=== PATIENT | male | born 1945 | race Caucasian/White ===

== ENCOUNTER → 2016-07-14 | Outpatient (CLI) | payer OTHER, BC ==
[~2016-07-14] MED LIST: ASPI-435 PO; CALC-5 PO; CHOL1TAB53 PO; LISI20TA3 PO; PIOG1TAB20 PO; PRS5 PO; VITATAB PO
[2016-07-14 12:42] LABS: BASO % 0.5 %; BASO ABS # 0.03 K/uL (0-0.2); COMPLETE YES; HEMATOCRIT 39.4 % (42-52); IG% 0.2 %; LYMPH % 18.9 %; LYMPH ABS # 1.19 K/uL (1.2-3.4); MEAN CELL VOLUME 87.6 fL (80-100); MEAN CORPUSCULAR HGB CONC 34.3 g/dl (32-36); MEAN PLATELET VOLUME 11.2 fL (7.4-10.4); MONO % 8.4 %; PLATELET COUNT 132 K/uL (130-400); WHITE BLOOD COUNT 6.29 K/uL (4.8-10.8)
[2016-07-14 13:02] LABS: ALT/SGPT 13 U/L (12-78); AST/SGOT 15 U/L (15-37); BLOOD UREA NITROGEN 23 mg/dl (7-18); CALCIUM 8.7 mg/dl (8.5-10.1); CARBON DIOXIDE 23 mmol/L (21-32); CHLORIDE 108 mmol/L (98-107); CHOLESTEROL 212 mg/dl (0-200); GLUCOSE 175 mg/dl (70-99); POTASSIUM 3.9 mmol/L (3.5-5.1); SODIUM 141 mmol/L (136-145); TRIGLYCERIDES 219 mg/dl (0-150); VERY LOW DENSITY LIPOPROT CALC 44 mg/dl
[2016-07-14 13:05] LABS: ALB/GLOB RATIO 1.1 (0.9-2); ALKALINE PHOSPHATASE 97 U/L (45-117); HDL CHOLESTEROL 42 mg/dl; LDL CHOLESTEROL CALCULATED 126 mg/dl
[2016-07-14 13:23] LABS: ESTIMATED AVERAGE GLUCOSE 171 mg/dl; HA1C FLAG Normal (Normal)
== END | disposition home or self-care (01) ==
LOC: C.LABBFT 08:14
PROVIDERS: ATTEND Internal Medicine
DX: Z00.00 Encounter for general adult medical examination without abnormal findings (principal); E11.9 Type 2 diabetes mellitus without complications; E78.5 Hyperlipidemia, unspecified; I10 Essential (primary) hypertension; E78.00 Pure hypercholesterolemia, unspecified; E55.9 Vitamin D deficiency, unspecified

== ENCOUNTER → 2017-06-03 | Outpatient (CLI) | payer OTHER, BC ==
[~2017-06-03] MED LIST changes: +CIPR-255 PO; +EPP3/2 IM; +LACTCAP3; +PHEN95TA14 PO; +PIOG1TAB25 PO; +SAXA1TAB5 PO; +SAXAGLIPTIN PO; +TAMS0.4C38 PO
[2017-06-03 12:22] LABS: BASO % 0.5 %; BASO ABS # 0.03 K/uL (0-0.2); EOS % 3.1 %; HEMATOCRIT 40.1 % (42-52); HEMOGLOBIN 13.3 g/dL (14.0-18.0); IG# 0.02 K/uL (0.00-0.02); LYMPH % 18.4 %; LYMPH ABS # 1.18 K/uL (1.2-3.4); MEAN CELL VOLUME 86.6 fL (80-100); MEAN CORPUSCULAR HEMOGLOBIN 28.7 pg (25-34); MEAN CORPUSCULAR HGB CONC 33.2 g/dl (32-36); MEAN PLATELET VOLUME 10.5 fL (7.4-10.4); MONO % 8.2 %; MONO ABS # 0.53 K/uL (0.11-0.59); NEUT % 69.5 %; NEUT ABS # 4.47 K/uL (1.4-6.5); PLATELET COUNT 142 K/uL (130-400); RED CELL DISTRIBUTION WIDTH CV 12.5 % (11.5-14.5); RED CELL DISTRIBUTION WIDTH SD 39.7 fL (36.4-46.3); WHITE BLOOD COUNT 6.43 K/uL (4.8-10.8)
[2017-06-03 12:33] LABS: HEMOGLOBIN A1C 7.9 % (4.5-5.6)
== END | disposition home or self-care (01) ==
LOC: C.LABBFT 08:00
PROVIDERS: ATTEND Internal Medicine
DX: Z11.59 Encounter for screening for other viral diseases (principal); E11.9 Type 2 diabetes mellitus without complications; D64.9 Anemia, unspecified; E55.9 Vitamin D deficiency, unspecified

== ENCOUNTER 2017-08-22 08:32 | Emergency (ER) | payer OTHER, BC ==
[~2017-08-22] VITALS: Ht 182.9 cm; Wt 99.7 kg
[~2017-08-22 08:32] MED LIST changes: -CIPR-255 PO; -EPP3/2 IM; -LACTCAP3; -PHEN95TA14 PO; -PIOG1TAB25 PO; -SAXA1TAB5 PO; -SAXAGLIPTIN PO; -TAMS0.4C38 PO
[2017-08-22 08:34] VITALS: TEMP 36.7; Ht 182.9 cm; Wt 99.7 kg
[2017-08-22] MEDS ORDERED: ONDANSETRON INJ 2 MG/ML 2 ML VIAL IV STA (08:45)
[2017-08-22] MEDS ORDERED: SODIUM CHLORIDE 0.9% 1000ML 1,000 ML IV STA (08:45)
[2017-08-22 09:13] LABS: BASO % 0.5 %; BASO ABS # 0.04 K/uL (0-0.2); EOS % 2.4 %; EOS ABS # 0.19 K/uL (0-0.5); HEMATOCRIT 42.4 % (42-52); HEMOGLOBIN 14.4 g/dL (14.0-18.0); IG# 0.03 K/uL (0.00-0.02); LYMPH ABS # 1.03 K/uL (1.2-3.4); MEAN CELL VOLUME 87.4 fL (80-100); MEAN CORPUSCULAR HEMOGLOBIN 29.7 pg (25-34); MONO % 5.9 %; MONO ABS # 0.47 K/uL (0.11-0.59); NEUT % 77.8 %; NEUT ABS # 6.17 K/uL (1.4-6.5); PLATELET COUNT 134 K/uL (130-400); RED CELL DISTRIBUTION WIDTH CV 13.4 % (11.5-14.5); RED CELL DISTRIBUTION WIDTH SD 42.5 fL (36.4-46.3); WHITE BLOOD COUNT 7.93 K/uL (4.8-10.8)
[2017-08-22 09:30] LABS: ALBUMIN 3.9 gm/dl (3.4-5.0); CALCIUM 9.2 mg/dl (8.5-10.1); CREATININE 1.19 mg/dl (0.60-1.40); POTASSIUM 3.6 mmol/L (3.5-5.1)
[2017-08-22 09:33] LABS: TOTAL PROTEIN 7.9 gm/dl (6.4-8.2)
--- NOTE | 2017-08-22 09:48 | DIAGNOSTIC IMAGING REPORT ---
ABD/PELVIS WITHOUT FOR STONE CLINICAL HISTORY: 71 years-old Male presenting with flank pain. TECHNIQUE: Multidetector CT of the abdomen and pelvis was performed without the use of intravenous contrast. IV contrast: None. A dose lowering technique was used consistent with the principles of ALARA (as low as reasonably achievable). COMPARISON: 01/29/2014. CT DOSE (mGy.cm): The estimated cumulative dose is 1327.36 mGy.cm. FINDINGS: [employer] topogram: Vasectomy clips noted. Lung bases: Minimal basilar opacities, likely atelectasis. Normal heart size. Coronary artery calcification. No pericardial or pleural effusion. Liver: Normal morphology. Normal density. 2 cm hypodensity in the right hepatic lobe in segment 7 (series 3 image 92), consistent with benign hemangioma on prior contrast enhanced exam. Biliary: No gross biliary ductal dilatation allowing for noncontrast technique. Normal gallbladder. Pancreas: Moderate parenchymal atrophy. Spleen: Normal noncontrast appearance. Adrenal glands: Normal noncontrast appearance. Kidneys and ureters: Multiple parapelvic cysts noted bilaterally. No hydronephrosis. No nephrolithiasis. Well-defined hypodensity exophytically arising from the lower pole the right kidney likely simple cyst. Ureters normal. Bladder: Hyperdense intraluminal filling defect concerning for hematoma. Although there is mild circumferential bladder wall thickening, no convincing evidence of a focal polypoid bladder wall lesion. Pelvic organs: Prostate enlargement likely secondary to benign prostatic hyperplasia. Bowel: Normal appendix. No bowel obstruction. Peritoneal cavity: No free fluid or intraperitoneal gas. Lymph nodes: No gross lymphadenopathy allowing for noncontrast technique. Vasculature: Atherosclerosis of the normal caliber abdominal aorta. Abdominal wall: Small fat-containing umbilical hernia. Musculoskeletal: Degenerative changes of the spine. Bone island noted in the right femoral neck. Mild osteopenia. IMPRESSION: 1. Hyperdense intraluminal filling defect in the bladder most concerning for hematoma. A polypoid neoplasm is considered less likely. However, the presence of a bladder hematoma is unexpected without a recent history of instrumentation or neoplasm. Therefore, urologic consultation for possible cystoscopy recommended. Differential considerations include mobile debris or less likely a fungus ball. 2. Circumferential bladder wall thickening most likely due to chronic bladder outlet obstruction in the setting of prostatomegaly. 3. No nephrolithiasis or hydronephrosis. The report will be called/faxed according to standard departmental protocol. Electronically signed by: Marcello Flaherty M.D. 08/22/2017 9:47 AM Dictated Date/Time: 08/22/2017 9:41 AM
[2017-08-22] MEDS ORDERED: LACTCAP3 (09:49)
--- NOTE | 2017-08-22 11:06 | EMERGENCY ROOM VISIT NOTE ---
History Report prepared by Mayra: Greg Mcgrath Under the Supervision of: Dr. Alden Fine D.O. First contact with patient: 08:40 Chief Complaint: HEMATURIA Stated Complaint: BLOOD IN URINE Nursing Triage Summary: pt reports noted hematuria that started last night pt reports " some low abdominal and testicular pain " denies use of blood thinners History of Present Illness The patient is a 71 year old male who presents to the Emergency Room with complaints of persistent urinary symptoms beginning last night. His symptoms include hematuria. He also complains of lower abdominal pain, and testicular pain. The patient is not on any blood thinning medication. He has a history of bladder infections, but states that his symptoms do not feel quite as severe. He denies fevers, nausea, vomiting, or diarrhea. The patient has a history of chronic back pain and has been receiving injections for this. His most recent injection was two weeks ago. His back pain is unchanged since his other symptoms began. The patient has no history of kidney stones. He most recently urinated 15 minutes ago without difficulty. Source of History: patient Onset: Last night Symptom Intensity: hematuria Quality: other (urinary symptoms) Timing: other (persistent) Associated Symptoms: + abdominal pain (lower), No fevers, No nausea, No vomiting, No back pain (abnormal), No diarrhea Note: Additional symptoms: testicular pain. Review of Systems See HPI for pertinent positives & negatives. A total of 10 systems reviewed and were otherwise negative. Past Medical & Surgical Medical Problems: (1) Diabetes (2) Hypertension (3) urinary problems Family History Cancer Diabetes mellitus Heart disease Hypertension Social History Smoking Status: Never Smoker Alcohol Use: none Drug Use: none Marital Status: single Housing Status: lives with family Occupation Status: employed Current/Historical Medications Scheduled Aspirin (Aspirin 81), 1 TAB PO QAM Calcium-Magnesium W/ Vitamin D (Calcium 500), 1 TAB PO QAM Cholecalciferol (D 1000), 2 TAB PO QAM Finasteride (Finasteride), 1 TAB PO QAM Lisinopril (Prinivil), 20 MG PO QAM Pioglitazone Hcl (Pioglitazone Hcl), 45 MG PO QAM Vitamins W/ Lipotropics (B-Complex), 1 TAB PO QAM Miscellaneous Medications Lactobacillus (Acidophilus) Allergies Coded Allergies: Metformin (Verified Allergy, Intermediate, INCREASED HEART RATE, 05/15/15) BEE STING (Verified Allergy, Unknown, HIVES, THROAT SWELLING, 05/15/15) Shellfish (Verified Allergy, Unknown, HIVES AND ANAPHYLAXIS, 05/15/15) Atorvastatin (Verified Adverse Reaction, Unknown, ULCERATIVE COLITIS FLARE -UP, 05/15/15) Ezetimibe (Verified Adverse Reaction, Unknown, ULCERATIVE COLITIS FLARE-UP , 05/15/15) Pravastatin (Verified Adverse Reaction, Unknown, ULCERATIVE COLITIS FLARE- UP, 04/22/15) Simvastatin (Verified Adverse Reaction, Unknown, ULCERATIVE COLITIS FLARE- UP, 04/22/15) Physical Exam Vital Signs Date Time Temp Pulse Resp B/P (MAP) Pulse Ox O2 Delivery O2 Flow Rate FiO2 08/22/17 11:19 77 18 129/77 98 08/22/17 10:02 74 18 134/73 97 Room Air 08/22/17 08:34 36.7 87 20 136/90 99 Room Air Physical Exam CONSTITUTIONAL/VITAL SIGNS: Reviewed / noted above. GENERAL: Non-toxic in appearance. INTEGUMENTARY: Warm, dry, and [place]. HEAD: Normocephalic. EYES: without scleral icterus or trauma. ENT/OROPHARYNX: clear and moist. LYMPHADENOPATHY/NECK: Is supple without lymphadenopathy or meningismus. RESPIRATORY: Lungs clear and equal. CARDIOVASCULAR: Regular rate and rhythm. GI/ABDOMEN: Soft. Mild lower abdominal tenderness. No organomegaly or pulsatile mass. No rebound or guarding. Normal bowel sounds. EXTREMITIES: Warm and well perfused. BACK: No CVA tenderness. NEUROLOGICAL: Intact without focal deficits. PSYCHIATRIC: normal affect. MUSCULOSKELETAL: Normally developed with good muscle tone. Medical Decision & Procedures ER Provider Diagnostic Interpretation: Radiology results as stated below per my review and radiologist interpretation: ABD/PELVIS WITHOUT FOR STONE FINDINGS: [employer] topogram: Vasectomy clips noted. Lung bases: Minimal basilar opacities, likely atelectasis. Normal heart size. Coronary artery calcification. No pericardial or pleural effusion. Liver: Normal morphology. Normal density. 2 cm hypodensity in the right hepatic lobe in segment 7 (series 3 image 92), consistent with benign hemangioma on prior contrast enhanced exam. Biliary: No gross biliary ductal dilatation allowing for noncontrast technique. Normal gallbladder. Pancreas: Moderate parenchymal atrophy. Spleen: Normal noncontrast appearance. Adrenal glands: Normal noncontrast appearance. Kidneys and ureters: Multiple parapelvic cysts noted bilaterally. No hydronephrosis. No nephrolithiasis. Well-defined hypodensity exophytically arising from the lower pole the right kidney likely simple cyst. Ureters normal. Bladder: Hyperdense intraluminal filling defect concerning for hematoma. Although there is mild circumferential bladder wall thickening, no convincing evidence of a focal polypoid bladder wall lesion. Pelvic organs: Prostate enlargement likely secondary to benign prostatic hyperplasia. Bowel: Normal appendix. No bowel obstruction. Peritoneal cavity: No free fluid or intraperitoneal gas. Lymph nodes: No gross lymphadenopathy allowing for noncontrast technique. Vasculature: Atherosclerosis of the normal caliber abdominal aorta. Abdominal wall: Small fat-containing umbilical hernia. Musculoskeletal: Degenerative changes of the spine. Bone island noted in the right femoral neck. Mild osteopenia. IMPRESSION: 1. Hyperdense intraluminal filling defect in the bladder most concerning for hematoma. A polypoid neoplasm is considered less likely. However, the presence of a bladder hematoma is unexpected without a recent history of instrumentation or neoplasm. Therefore, urologic consultation for possible cystoscopy recommended. Differential considerations include mobile debris or less likely a fungus ball. 2. Circumferential bladder wall thickening most likely due to chronic bladder outlet obstruction in the setting of prostatomegaly. 3. No nephrolithiasis or hydronephrosis. The report will be called/faxed according to standard departmental protocol. Electronically signed by: Marcello Flaherty M.D. 08/22/2017 9:47 AM Laboratory Results 08/22/17 09:00 Red Blood Count 4.85, Mean Corpuscular Volume 87.4, Mean Corpuscular Hemoglobin 29.7, Mean Corpuscular Hemoglobin Concent 34.0, Mean Platelet Volume 10.0, Neutrophils (%) (Auto) 77.8, Lymphocytes (%) (Auto) 13.0, Monocytes (%) (Auto) 5.9, Eosinophils (%) (Auto) 2.4, Basophils (%) (Auto) 0.5, Neutrophils # (Auto) 6.17, Lymphocytes # (Auto) 1.03, Monocytes # (Auto) 0.47, Eosinophils # (Auto) 0.19, Basophils # (Auto) 0.04 08/22/17 09:00 Test 08/22/17 08:48 08/22/17 09:00 Urine Color RED Urine Appearance CLOUDY (CLEAR) Urine pH (4.5-7.5) Urine Specific [place] 1.018 (1.000-1.030) Urine Protein POS (NEG) Urine Glucose (UA) (NEG) Urine Ketones (NEG) Urine Occult Blood (NEG) Urine Nitrite (NEG) Urine Bilirubin (NEG) Urine Urobilinogen (NEG) Urine Leukocyte Esterase (NEG) Urine RBC >30 /hpf (0-4) Urine WBC 5-10 /hpf (0-5) Urine Epithelial Cells 0-5 /lpf (0-5) Urine Bacteria NEG (NEG) White Blood Count 7.93 K/uL (4.8-10.8) Red Blood Count 4.85 M/uL (4.7-6.1) Hemoglobin 14.4 g/dL (14.0-18.0) Hematocrit 42.4 % (42-52) Mean Corpuscular Volume 87.4 fL (80-100) Mean Corpuscular Hemoglobin 29.7 pg (25-34) Mean Corpuscular Hemoglobin Concent 34.0 g/dl (32-36) Platelet Count 134 K/uL (130-400) Mean Platelet Volume 10.0 fL (7.4-10.4) Neutrophils (%) (Auto) 77.8 % Lymphocytes (%) (Auto) 13.0 % Monocytes (%) (Auto) 5.9 % Eosinophils (%) (Auto) 2.4 % Basophils (%) (Auto) 0.5 % Neutrophils # (Auto) 6.17 K/uL (1.4-6.5) Lymphocytes # (Auto) 1.03 K/uL (1.2-3.4) Monocytes # (Auto) 0.47 K/uL (0.11-0.59) Eosinophils # (Auto) 0.19 K/uL (0-0.5) Basophils # (Auto) 0.04 K/uL (0-0.2) RDW Standard Deviation 42.5 fL (36.4-46.3) RDW Coefficient of Variation 13.4 % (11.5-14.5) Immature Granulocyte % (Auto) 0.4 % Immature Granulocyte # (Auto) 0.03 K/uL (0.00-0.02) Anion Gap 6.0 mmol/L (3-11) Est Creatinine Clear Calc Drug Dose 69.6 ml/min Estimated GFR () 70.8 Estimated GFR (Non- 61.1 BUN/Creatinine Ratio 14.9 (10-20) Calcium Level 9.2 mg/dl (8.5-10.1) Total Bilirubin 0.4 mg/dl (0.2-1) Direct Bilirubin 0.1 mg/dl (0-0.2) Aspartate Amino Transf (AST/SGOT) 17 U/L (15-37) Alanine Aminotransferase (ALT/SGPT) 16 U/L (12-78) Alkaline Phosphatase 98 U/L (45-117) Total Protein 7.9 gm/dl (6.4-8.2) Albumin 3.9 gm/dl (3.4-5.0) Lipase 204 U/L (73-393) Laboratory results as stated above per my review. Medications Administered Medications (Trade) Dose Ordered Sig/Marlena Route Start Time Stop Time Status Last Admin Dose Admin Sodium Chloride 1,000 ml @ 999 mls/hr Q1H1M STAT IV 08/22/17 08:45 08/22/17 09:45 DC 08/22/17 09:06 999 MLS/HR Ondansetron HCl (Zofran Inj) 4 mg NOW STAT IV 08/22/17 08:45 08/22/17 08:47 DC 08/22/17 09:13 4 MG ED Course 0849: Previous medical records were reviewed. The patient was evaluated in room A9B. A complete history and physical examination was performed. Ordered Zofran Inj 4 mg IV, Sodium Chloride 1000 ml @ 999 mls/hr IV. 1105: On reevaluation, the patient is resting comfortably. I discussed the results and findings with the patient. He verbalized agreement of the treatment plan. The patient was discharged home. Medical Decision Differential considered: pancreatitis, hepatitis, or acute cholecystitis, AAA, UTI, pyelonephritis, kidney stones, appendicitis, diverticulitis, shingles, bowel obstruction mesenteric ischemia, intussusception,hernia, testicular torsion. This is a 71-year-old male who presents to the ED with a chief complaint of hematuria. The patient states that his symptoms started last night. He reports a history of bladder infection but no history of kidney stones. He does report some chronic back pain that has not been worsened by his onset of hematuria. He denies any fevers, nausea vomiting. Nothing seems to make his symptoms better or worse. He has seen Dr. Underwood in the past. The patient has an unremarkable exam with exception of some mild suprapubic tenderness. His CBC is normal, complete metabolic panel was normal other than a glucose of 254. He is a diabetic. Urinalysis reveals 3+ protein, greater than 30 RBCs and 5-10 WBCs. No obvious infection. A CT scan of the abdomen and pelvis reveals a hyperdense intraluminal filling defect in the bladder most concerning for hematoma although a neoplasm could appear similar. Cystoscopy was recommended by radiology services. I spoke with Maribel Thompson from urology. She will call the patient for follow-up cystoscopy. The patient is felt to be stable for discharge. Medication Reconcilliation Current Medication List: was personally reviewed by me Blood Pressure Screening Patient's blood pressure: Elevated blood pressure Blood pressure disposition: Elevated BP felt to be situational Consults Time Called: 1055 Consulting Physician: Guy VALENTINO - Urology Returned Call: 1100 Discussed the patient's case. Guy VALENTINO will schedule the patient for cystoscopy. Impression Primary Impression: Hematoma of bladder wall Scribe Attestation The scribe's documentation has been prepared under my direction and personally reviewed by me in its entirety. I confirm that the note above accurately reflects all work, treatment, procedures, and medical decision making performed by me. Departure Information Dispostion Home / Self-Care Referrals No Doctor, Assigned (PCP) Patient Instructions My [facility] Additional Instructions I spoke with Maribel Thompson from urology. They will call you for a follow-up cystoscopy. Follow-up with your doctor for further care and evaluation in 1-2 days. Return to the emergency department for worsening or new symptoms or any concerns. You have been examined and treated today on an emergency basis only. This is not a substitute for, or an effort to provide, complete comprehensive medical care. It is impossible to recognize and treat all injuries or illnesses in a single emergency department visit. It is therefore important that you follow up closely with your doctor. Call as soon as possible for an appointment.
[2017-08-22 11:19] VITALS: BP 129/77; PULSE 77; O2SAT 98
== END 2017-08-22 11:20 | disposition home or self-care (01) ==
LOC: C.EDB 08:34 → C.EDA 11:20
DX: N32.89 Other specified disorders of bladder (principal); R10.30 Lower abdominal pain, unspecified; N50.819 Testicular pain, unspecified; M54.9 Dorsalgia, unspecified; G89.29 Other chronic pain; E11.65 Type 2 diabetes mellitus with hyperglycemia; I10 Essential (primary) hypertension; Z87.440 Personal history of urinary (tract) infections; Z79.82 Long term (current) use of aspirin; Z79.84 Long term (current) use of oral hypoglycemic drugs; Z88.8 Allergy status to other drugs, medicaments and biological substances; Z91.030 Bee allergy status; Z91.013 Allergy to seafood; Z83.3 Family history of diabetes mellitus; Z82.49 Family history of ischemic heart disease and other diseases of the circulatory system

== ENCOUNTER → 2017-08-30 | Outpatient (CLI) | payer OTHER, BC ==
[~2017-08-30] MED LIST changes: +CIPR-255 PO; +EPP3/2 IM; +LACTCAP3; +PHEN95TA14 PO; +PIOG1TAB25 PO; +SAXA1TAB5 PO; +SAXAGLIPTIN PO; +TAMS0.4C38 PO
--- NOTE | 2017-08-30 14:09 | DIAGNOSTIC IMAGING REPORT ---
CHEST 2 VIEWS ROUTINE CLINICAL HISTORY: 71 years-old Male presenting with C67.9 Bladder cancer. TECHNIQUE: PA and lateral views of the chest were obtained. COMPARISON: 04/14/2015. FINDINGS: Cardiomediastinal silhouette normal. Lungs and pleural spaces clear. Degenerative changes of the thoracic spine. Upper abdomen normal. IMPRESSION: 1. No acute cardiopulmonary disease. Radiography has a low sensitivity for intrathoracic metastatic disease. If there is clinical concern for this entity, chest CT should be obtained. Electronically signed by: Marcello Flaherty M.D. 08/30/2017 2:08 PM Dictated Date/Time: 08/30/2017 2:06 PM
[2017-08-30 14:43] LABS: BASO % 0.7 %; BASO ABS # 0.04 K/uL (0-0.2); EOS % 2.4 %; EOS ABS # 0.14 K/uL (0-0.5); HEMATOCRIT 37.8 % (42-52); IG# 0.02 K/uL (0.00-0.02); LYMPH % 22.2 %; LYMPH ABS # 1.29 K/uL (1.2-3.4); MEAN CELL VOLUME 87.5 fL (80-100); MEAN CORPUSCULAR HEMOGLOBIN 30.1 pg (25-34); MEAN CORPUSCULAR HGB CONC 34.4 g/dl (32-36); MEAN PLATELET VOLUME 10.4 fL (7.4-10.4); MONO % 9.1 %; MONO ABS # 0.53 K/uL (0.11-0.59); NEUT % 65.3 %; PLATELET COUNT 139 K/uL (130-400); RED CELL DISTRIBUTION WIDTH CV 13.4 % (11.5-14.5); RED CELL DISTRIBUTION WIDTH SD 42.7 fL (36.4-46.3); WHITE BLOOD COUNT 5.82 K/uL (4.8-10.8)
[2017-08-30 14:58] LABS: BLOOD UREA NITROGEN 20 mg/dl (7-18); CALCIUM 9.2 mg/dl (8.5-10.1); CARBON DIOXIDE 27 mmol/L (21-32); CREATININE 1.13 mg/dl (0.60-1.40); GLUCOSE 216 mg/dl (70-99); SODIUM 137 mmol/L (136-145)
== END ==
LOC: C.CPL 13:26
PROVIDERS: ATTEND Urology
DX: C67.9 Malignant neoplasm of bladder, unspecified (principal)

== ENCOUNTER 2017-09-08 07:47 | Day surgery (SDC) | payer OTHER, BC ==
[2017-08-31 12:59] VITALS: BMI 29.0
[~2017-09-08] VITALS: Ht 182.9 cm; Wt 97.7 kg
[~2017-09-08 07:47] MED LIST changes: -CIPR-255 PO; +LACTATED RINGER'S 1000ML 1,000 ML IV SCH; -PHEN95TA14 PO; -PIOG1TAB20 PO; -PRS5 PO; -SAXA1TAB5 PO; -TAMS0.4C38 PO
[2017-09-08] MEDS ORDERED: FENTANYL CITRATE INJ 50 MCG/1 ML 2 ML VIAL ONE (08:27)
[2017-09-08] MEDS ORDERED: LIDOCAINE HCL 2% 2 ML VIAL (20MG/ML) ONE (08:27)
[2017-09-08] MEDS ORDERED: PROPOFOL IV EMULSION 10 MG/ML 20 ML VIAL IV ONE (08:27)
[2017-09-08] MEDS ORDERED: ONDANSETRON INJ 2 MG/ML 2 ML VIAL ONE (08:27)
[2017-09-08] MEDS ORDERED: DEXAMETHASONE SOD INJ 4 MG/ML VIAL ONE (08:27)
[2017-09-08 08:28] VITALS: BP 139/82; PULSE 97; TEMP 36.6; O2SAT 97; Ht 182.9 cm; Wt 97.7 kg
[2017-09-08] MEDS ORDERED: EpHEDrine SULFATE INJ 50 MG/ML AMP IV PRN (08:45)
[2017-09-08] MEDS ORDERED: FENTANYL CITRATE INJ 50 MCG/1 ML 2 ML VIAL IV PRN (08:45)
[2017-09-08] MEDS ORDERED: ATROPINE SULFATE 0.1 MG/ML 5ML SYR IV PRN (08:45)
[2017-09-08] MEDS ORDERED: ONDANSETRON INJ 2 MG/ML 2 ML VIAL IV PRN (08:45)
--- NOTE | 2017-09-08 09:24 | History & Physical Bridge Note ---
H&P Re-Evaluation Bridge Note: I have examined the patient, reviewed the History & Physical and in the interval since the performance of the History & Physical I have noted the following changes of clinical significance: No changes noted
[2017-09-08] MEDS ORDERED: NURSING VERBAL MED ORDER ONE (09:45)
[2017-09-08] MEDS ORDERED: CIPROFLOXACIN / D5W 400 MG IV SCH (10:00)
[2017-09-08] MEDS ORDERED: PHENAZOPYRIDINE HCL 200 MG TAB PO STA (10:42)
[2017-09-08] MEDS ORDERED: SODIUM CHLORIDE 0.9% 1000ML 1,000 ML IV SCH (10:42)
--- NOTE | 2017-09-08 10:42 | [facility] Operative Report ---
Operative Report Operative Date Sep 08, 2017. Pre-Operative Diagnosis Hematuria Post-Operative Diagnosis Hematuria Procedure(s) Performed Cystoscopy, Transurethral Resection Bladder Lesion (intravesical prostate) Surgeon Dr. Ruelas Pilot Surgeon(s) none Estimated Blood Loss 0ml Specimens A) intravesical prostate tissue Anesthesia Type General Complication(s) none Disposition yes Recovery Room / PACU Indications Gross hematuria Description of Procedure The patient was identified in the preoperative holding area appropriate informed consents reviewed and completed and he was transported to the operating suite. Upon arrival he received appropriate preoperative antibiotics in the form of ciprofloxacin. Adequate general anesthesia was achieved and he was placed in dorsal lithotomy position and sterilely prepped and draped in standard fashion. Of note, this patient was recently seen in the office and scoped by partner who identified gross hematuria but had extreme difficulty visualizing the exact source of bleeding with a flexible cystoscope. He subsequently has been set up for an operative procedure under anesthesia to further evaluate his bleeding. Fortunately, he reports that his bleeding spontaneously stopped approximately 48 hours ago and has not resumed. To begin her case today, I passed a 27 Syriac resectoscope with 30 lens and visual ammonia still operator. Inspection revealed no evidence of stricture disease. Upon entry into the prostate, it was immediately apparent that he has significant lateral lobe hypertrophy with vessels that appeared to have recently been bleeding from the surface of the lateral lobes. Inspection of the bladder neck itself revealed no significant posterior intravesical median lobe, however the lateral lobe incursion of the prostate was pronounced creating essentially pedunculated tissue into the bladder originating from both the right and left lateral lobes, but more pronounced from the right. The right lateral aspect of this intravesical prostatic tissue was edematous creating a somewhat papillary appearance, although this did not appear to be consistent with a TCC. From minimal manipulation with my scope, bleeding was really started, and I suspect this may have been contributed factor to his prior hematuria and the suspicion of a bladder tumor. I was able to cauterize this using a loop device and then resect a portion of this asymmetrical area. After this resection, the chips were evacuated and there was extremely good hemostasis. I strongly suspect that this tissue that was resected a simple intravesical prostatic tissue and not bladder cancer. The patient certainly would be a candidate for formal TURP secondary to a significant obstructive component. All remaining aspects of the bladder were inspected utilizing both a 30 and 70 lens, no bladder tumors were identified. He does have a large capacity bladder with moderate trabeculation. After again ensuring excellent hemostasis, the case was concluded and the scope removed. The patient was taken to the PACU in stable condition. I attest to the content of the Intraoperative Record and any orders documented therein. Any exceptions are noted below.
[2017-09-08] MEDS ORDERED: CIPR-255 PO (10:44)
[2017-09-08] MEDS ORDERED: PHEN95TA14 PO (10:44)
[2017-09-08] MEDS ORDERED: TAMS0.4C38 PO (10:44)
[2017-09-08] MEDS ORDERED: ACETAMINOPHEN 325 MG TAB PO PRN (10:45)
[2017-09-08] MEDS ORDERED: HYDROCODONE/ACETAMIN 5/325MG TAB PO PRN (10:45)
--- NOTE | 2017-09-08 10:45 | Discharge Instructions ---
Discharge Instructions Date of Service Sep 08, 2017. Admission Reason for Admission: Hematuria Discharge Discharge Diagnosis / Problem: BPH with bleeding Discharge Goals Goal(s): Decrease discomfort, Improve function, Increase independence, Improve disease control, Prevent Disease Progression Activity Recommendations Activity Limitations: resume your previous activity Lifting Limitations: none Exercise/Sports Limitations: none May Resume Sexual Activity: when tolerated Shower/Bathe: no limitations Driving or Machine Use: resume 1 day after discharge . Instructions / Follow-Up Instructions / Follow-Up Please keep your previously scheduled follow up appointment Current Hospital Diet Patient's current hospital diet: Discharge Diet Recommended Diet: Regular Diet Procedures Procedures Performed: Cystoscopy, Transurethral Resection Bladder Lesion (intravesical prostate) Pending Studies Studies pending at discharge: no Medical Emergencies . Who to Call and When: Medical Emergencies: If at any time you feel your situation is an emergency, please call 911 immediately. . Non-Emergent Contact Non-Emergency issues call your: Urologist Call Non-Emergent contact if: you have a fever, temperature is above 101.5, your pain is not controlled, your pain is worsening . . "Provider Documentation" section prepared by Yoni Davenport. .
[2017-09-08 11:35] VITALS: BP 158/82; PULSE 72; TEMP 36.7; O2SAT 100
--- NOTE | 2017-09-08 11:50 | Anesthesiology Progress Note ---
Anesthesia Post Op Note Date & Time Sep 08, 2017 at 11:49 Vital Signs Pain Intensity: 0 Vital Signs Past 12 Hours Date Time Temp Pulse Resp B/P (MAP) Pulse Ox O2 Delivery O2 Flow Rate FiO2 09/08/17 11:35 36.7 72 20 158/82 100 Room Air 09/08/17 11:25 72 16 150/86 100 Room Air 09/08/17 11:20 37.0 70 18 145/83 100 Room Air 09/08/17 11:10 71 18 146/84 100 Oxymask 10 09/08/17 11:00 73 12 140/81 100 Oxymask 10 09/08/17 10:50 36.2 86 12 139/82 100 Oxymask 10 09/08/17 08:28 36.6 97 18 139/82 (101) 97 Room Air Notes Mental Status: alert / awake / arousable, participated in evaluation Pt Amnestic to Procedure: Yes Nausea / Vomiting: adequately controlled Pain: adequately controlled Airway Patency, RR, SpO2: stable & adequate BP & HR: stable & adequate Hydration State: stable & adequate Anesthetic Complications: no major complications apparent
[2017-09-08 12:05] VITALS: BP 148/79; PULSE 68; TEMP 36.8; O2SAT 100
[2017-09-08 12:35] VITALS: BP 150/80; PULSE 66; TEMP 36.6; O2SAT 97
== END 2017-09-08 12:44 | disposition home or self-care (01) ==
LOC: C.ACU 07:47
PROVIDERS: ATTEND Urology
DX: R31.9 Hematuria, unspecified (principal); N41.1 Chronic prostatitis; E11.9 Type 2 diabetes mellitus without complications; I48.92 Unspecified atrial flutter; N40.0 Benign prostatic hyperplasia without lower urinary tract symptoms; E78.5 Hyperlipidemia, unspecified; I10 Essential (primary) hypertension; Z90.89 Acquired absence of other organs; Z98.890 Other specified postprocedural states; Z79.82 Long term (current) use of aspirin; Z79.899 Other long term (current) drug therapy; Z91.030 Bee allergy status; Z91.013 Allergy to seafood; Z88.1 Allergy status to other antibiotic agents; Z88.8 Allergy status to other drugs, medicaments and biological substances; Z80.9 Family history of malignant neoplasm, unspecified; Z83.3 Family history of diabetes mellitus; Z82.49 Family history of ischemic heart disease and other diseases of the circulatory system

== ENCOUNTER → 2017-10-11 | Outpatient (CLI) | payer OTHER, BC ==
[~2017-10-11] MED LIST changes: +CIPR-255 PO; -LACTATED RINGER'S 1000ML 1,000 ML IV SCH; +PHEN95TA14 PO; +TAMS0.4C38 PO
[2017-10-11 12:33] LABS: BASO % 0.6 %; BASO ABS # 0.04 K/uL (0-0.2); EOS % 3.5 %; EOS ABS # 0.22 K/uL (0-0.5); HEMATOCRIT 38.8 % (42-52); HEMOGLOBIN 12.7 g/dL (14.0-18.0); IG# 0.02 K/uL (0.00-0.02); LYMPH % 19.4 %; LYMPH ABS # 1.23 K/uL (1.2-3.4); MEAN CELL VOLUME 88.2 fL (80-100); MEAN CORPUSCULAR HEMOGLOBIN 28.9 pg (25-34); MEAN CORPUSCULAR HGB CONC 32.7 g/dl (32-36); MEAN PLATELET VOLUME 10.2 fL (7.4-10.4); MONO ABS # 0.51 K/uL (0.11-0.59); NEUT % 68.2 %; NEUT ABS # 4.33 K/uL (1.4-6.5); PLATELET COUNT 134 K/uL (130-400); RED CELL DISTRIBUTION WIDTH CV 13.2 % (11.5-14.5); RED CELL DISTRIBUTION WIDTH SD 42.4 fL (36.4-46.3); WHITE BLOOD COUNT 6.35 K/uL (4.8-10.8)
[2017-10-11 12:49] LABS: HEMOGLOBIN A1C 7.7 % (4.5-5.6)
[2017-10-11 13:05] LABS: ALBUMIN 3.5 gm/dl (3.4-5.0); ALT/SGPT 19 U/L (12-78); AST/SGOT 23 U/L (15-37); BLOOD UREA NITROGEN 17 mg/dl (7-18); CALCIUM 8.4 mg/dl (8.5-10.1); CARBON DIOXIDE 26 mmol/L (21-32); CHOLESTEROL 205 mg/dl (0-200); CREATININE 1.11 mg/dl (0.60-1.40); GLUCOSE 161 mg/dl (70-99); POTASSIUM 3.9 mmol/L (3.5-5.1); SODIUM 139 mmol/L (136-145)
[2017-10-11 13:10] LABS: ALKALINE PHOSPHATASE 83 U/L (45-117); LDL CHOLESTEROL CALCULATED 137 mg/dl; TOTAL PROTEIN 6.8 gm/dl (6.4-8.2)
== END | disposition home or self-care (01) ==
LOC: C.LABBFT 08:00
PROVIDERS: ATTEND Internal Medicine
DX: E11.9 Type 2 diabetes mellitus without complications (principal); M51.36 Other intervertebral disc degeneration, lumbar region; I48.92 Unspecified atrial flutter; D64.9 Anemia, unspecified; R05 Cough; N40.1 Benign prostatic hyperplasia with lower urinary tract symptoms; C67.9 Malignant neoplasm of bladder, unspecified; E78.00 Pure hypercholesterolemia, unspecified